=== PATIENT | male | born 1945 | race Caucasian/White ===

== ENCOUNTER → 2022-08-03 | Day surgery (SDC) | payer MEDICARE, OTHER ==
[~2022-08-03] VITALS: Ht 175.2 cm; Wt 88.9 kg
[~2022-08-03] MED LIST: BACTRIM DS 8001 TA1 PO; CARAFATE1 G1 PO; CELEBREX100 MG PO; PROTONIX40 MG PO
[2022-08-03 08:13] VITALS: BP 144/71
[2022-08-03 08:45] VITALS: BP 142/83
[2022-08-03 09:00] VITALS: BP 111/75
[2022-08-03 09:15] VITALS: BP 142/74
== END | disposition home or self-care (01) ==
LOC: SDC 07-31 09:30
PROVIDERS: ATTEND Surgery
DX: R13.10 Dysphagia, unspecified (principal); K22.4 Dyskinesia of esophagus; K21.9 Gastro-esophageal reflux disease without esophagitis; J31.2 Chronic pharyngitis; M19.90 Unspecified osteoarthritis, unspecified site; Z88.0 Allergy status to penicillin; Z87.891 Personal history of nicotine dependence; Z79.899 Other long term (current) drug therapy